=== PATIENT | male | born 1955 ===

== ENCOUNTER 2016-12-31 12:53 | Outpatient (CLI) | payer OTHER ==
--- NOTE | 2016-12-31 15:12 | XRay Report ---
Chest 2 views. History: Cough. Findings: The lungs are mildly hyperinflated and clear. The heart and pulmonary vessels are normal. No pleural fluid is seen. Impression: No acute findings.
== END 2016-12-31 12:54 | disposition home or self-care (01) ==
LOC: SPVIMAG 12:53
PROVIDERS: ATTEND Internal Medicine Hematology & Oncology
DX: R05 Cough (principal)
CPT/HCPCS: 71020